=== PATIENT | female | born 1945 | race Caucasian/White ===

== ENCOUNTER 2017-11-07 12:42 | Emergency (ER) | payer MEDICARE ==
[~2017-11-07] VITALS: Ht 167.6 cm; Wt 77.1 kg
[2017-11-07] MEDS ORDERED: MECL12.5 PO (14:48)
== END 2017-11-07 15:01 | disposition home or self-care (01) ==
LOC: ER 12:42
DX: H46.10 Retrobulbar neuritis, unspecified eye (principal); I25.2 Old myocardial infarction; Z88.8 Allergy status to other drugs, medicaments and biological substances; Z87.891 Personal history of nicotine dependence
CPT/HCPCS: 93005; 93010; 99283